=== PATIENT | female | born 1970 | race Caucasian/White ===

== ENCOUNTER → 2017-02-01 | Outpatient (CLI) | payer OTHER ==
[~2017-02-01] MED LIST: HYDR-3241 PO; SULF1TAB24 PO; SUMA50TA3 PO
== END | disposition home or self-care (01) ==
LOC: RAD 12:16
PROVIDERS: ATTEND Nurse Practitioner Primary Care
DX: Z02.9 Encounter for administrative examinations, unspecified (principal)